=== PATIENT | female | born 1950 | race Caucasian/White ===

== ENCOUNTER 2020-05-01 09:40 | Day surgery (SDC) | payer MEDICARE, OTHER ==
[~2020-05-01 09:40] MED LIST: FENTANYL CITRATE INJ/PF 100 MCG/2 ML AMPUL ONE; KETOROLAC TROMETHAMINE 0.45% 4 DROP/0.4 ML DROPERETTE OD PRN; MIDAZOLAM 2 MG/2 ML INJ ONE
[2020-05-01] MEDS: TETRACAINE HCL 0.5% OPH SOLN 4 ML OD PRN ×3 (10:19→10:39)
[2020-05-01] MEDS: CYCLOPENTOLATE 0.2%/PHENYLEPHRINE 1% OPH SOLN 2 ML OD PRN ×3 (10:20→10:32)
[2020-05-01] MEDS: TROPICAMIDE 1% OPH SOLN 15 ML OD PRN ×3 (10:20→10:32)
[2020-05-01] MEDS: BESIFLOXACIN HCL 0.6% OPH SUSP 5 ML BOTTLE OD PRN ×4 (10:20→11:08)
[2020-05-01] MEDS ORDERED: MIDAZOLAM 2 MG/2 ML INJ ONE (10:21)
[2020-05-01] MEDS: LIDOCAINE 1%/PHENYLEPHRINE 1.5% 1 ML VIAL ONE ×2 (10:53)
[2020-05-01] MEDS: EPINEPHRINE INJ/PF 1 MG/1 ML AMPULE ONE ×2 (10:54)
[2020-05-01] MEDS: CHONDR SU A NA/HYALUR INTRAOC KIT (SURGICARE) ONE ×2 (10:54)
[2020-05-01] MEDS: PREDNISOLONE ACETATE 1% OPH SUSP 5 ML OD PRN ×2 (11:08)
[2020-05-01] MEDS: DORZOLAMIDE HCL 2%/TIMOLOL MALEAT 0.5% OPH SOLN 10 ML OD PRN ×2 (11:08)
--- NOTE | 2020-05-01 12:41 | Operative Report ---
Operative Report-[facility] Operative Report: DATE OF SURGERY: 05/01/2020 PREOPERATIVE DIAGNOSIS: Cataract, right eye POSTOPERATIVE DIAGNOSIS: Cataract, right eye OPERATION: Cataract extraction with insertion of an toric IOL of the right eye. Intraocular Lens Model: [22.0 diopter tfnt30 rotated to 144 degrees] Patient underwent surgery for difficulty seeing to drive at night SURGEON: Yunior Abel MD ANESTHESIA: Topical PROCEDURE: After obtaining appropriate consent, the patient's right eye was prepped and draped in a sterile fashion as well as the surgeon in the sterile manner and cataract surgery was started. First a paracentesis blade was used to make a side-port incision. Viscoelastic was used to inflate the anterior chamber. Next a 2.4 mm incision was made with a 2.4 mm blade, clear corneal temporarily. A continuous capsulorrhexis was made using a cystotome and Utrata forceps. Following this hydrodissection was carried out to make the ayanna fully loose and mobile and it was rotated. Following this, a divide and conquer technique was used to phacoemulsify the ayanna. The remaining cortex was removed with an irrigation/aspiration. Provisc was instilled into the capsular bag to inflate the bag. The intraocular lens was placed. The remaining viscoelastic material was removed with irrigation/aspiration. Following this, the incision was found to be watertight. Besivance and Cosopt was instilled into the eye and a protective shield was placed over the eye. The patient was reurned to the postoperative recovery in a stable condition.
== END 2020-05-01 11:40 | disposition home or self-care (01) ==
LOC: SC 09:40
PROVIDERS: ATTEND Internal Medicine
DX: H25.811 Combined forms of age-related cataract, right eye (principal); E03.9 Hypothyroidism, unspecified; E78.00 Pure hypercholesterolemia, unspecified; J45.909 Unspecified asthma, uncomplicated; I10 Essential (primary) hypertension; M06.9 Rheumatoid arthritis, unspecified; E66.9 Obesity, unspecified
CPT/HCPCS: 66984; V2788; J2250; J3490 ×2; A9270; J0171; 142; J3010

== ENCOUNTER 2020-05-22 07:51 | Day surgery (SDC) | payer MEDICARE, OTHER ==
[~2020-05-22 07:51] MED LIST changes: +CHONDR SU A NA/HYALUR INTRAOC KIT (SURGICARE) ONE; +DORZOLAMIDE HCL 2%/TIMOLOL MALEAT 0.5% OPH SOLN 10 ML OS PRN; +EPINEPHRINE INJ/PF 1 MG/1 ML AMPULE ONE; -FENTANYL CITRATE INJ/PF 100 MCG/2 ML AMPUL ONE; -KETOROLAC TROMETHAMINE 0.45% 4 DROP/0.4 ML DROPERETTE OD PRN; +LIDOCAINE 1%/PHENYLEPHRINE 1.5% 1 ML VIAL ONE; +LIDOCAINE 3.5% OPH GEL/PF 1 ML/TUBE OS PRN; -MIDAZOLAM 2 MG/2 ML INJ ONE; +PREDNISOLONE ACETATE 1% OPH SUSP 5 ML OS PRN
[2020-05-22] MEDS: TROPICAMIDE 1% OPH SOLN 15 ML OS PRN ×3 (08:36→09:06)
[2020-05-22] MEDS: CYCLOPENTOLATE 0.2%/PHENYLEPHRINE 1% OPH SOLN 2 ML OS PRN ×3 (08:36→09:06)
[2020-05-22] MEDS: TETRACAINE HCL 0.5% OPH SOLN 4 ML OS PRN ×2 (08:36→09:14)
[2020-05-22] MEDS: KETOROLAC TROMETHAMINE 0.45% 4 DROP/0.4 ML DROPERETTE OS PRN ×2 (08:36→09:06)
[2020-05-22] MEDS: BESIFLOXACIN HCL 0.6% OPH SUSP 5 ML BOTTLE OS PRN ×3 (08:36→09:38)
[2020-05-22] MEDS ORDERED: MIDAZOLAM 2 MG/2 ML INJ ONE (08:59)
--- NOTE | 2020-05-22 11:56 | Operative Report ---
Operative Report-[facility] Operative Report: DATE OF SURGERY: 05/22/2020 PREOPERATIVE DIAGNOSIS: Cataracts, left eye POSTOPERATIVE DIAGNOSIS: Cataract, left eye OPERATION: Cataract extraction with insertion of an panoptic's toric IOL of the left eye. Intraocular Lens Model: [22.5 TF NT 30 rotated to 31 degrees] went surgery for difficulty seeing small print SURGEON: Yunior Abel MD ANESTHESIA: Topical PROCEDURE: After obtaining appropriate consent, the patient's left eye was prepped and draped in a sterile fashion as well as the surgeon in the sterile manner and cataract surgery was started. First a paracentesis blade was used to make a side-port incision. Viscoelastic was used to inflate the anterior chamber. Next a 2.4 mm incision was made with a 2.4 mm blade, clear corneal temporarily. A continuous capsulorrhexis was made using a cystotome and Utrata forceps. Following this hydrodissection was carried out to make the lens fully loose and mobile and it was rotated 90 degrees. Following this, a divide and conquer technique was used to phacoemulsify the lens. The remaining cortex was removed with an irrigation/aspiration. Provisc was instilled into the capsular bag to inflate the bag.The intraocular lens was placed. The remaining viscoelastic material was removed with irrigation/aspiration. Following this, the incision was found to be watertight. Besivance and Cosopt was instilled into the eye and a protective shield was placed over the eye. The patient was returned to the postoperative recovery in a stable condition.
--- OUTSIDE RECORDS SUMMARY | 2020-05-23 14:59 | XMS REPORT ---
:1950 Author Organization [facility] Address [address] [place] [address] Care Team Providers Name Role Phone Jazmin, R Primary Care Physician Unavailable Tristan KINCAID Attending Clinician Unavailable Nancy Baez MD Attending Clinician Unavailable Viry Odell Attending Clinician Unavailable MD Yakov Obregon Attending Clinician Unavailable MD Yakov Obregon Attending Clinician Unavailable MD Amando Haider Admitting Clinician Unavailable Allergies, Adverse Reactions, Alerts Allergy Allergy Status Severity Reaction(s) Onset Inactive Treating C omments Name Type Date Date Clinician Thiazide Thiazide Active Photosensitivit Diuretics Diuretics y Augmentin Augmentin Active TABS TABS Bactrim Bactrim Active TABS TABS Medications Ordered Filled Start Stop Current Ordering Indication Dosage Frequency Signature Comments Components Medication Medication Date Date Medication? Clinician (SIG) Name Name amLODIPine 2019-07 Yes Nehemiah 1 QD amLODIPine Besylate 5 - Tristan KINCAID Besylate 5 MG Oral 00:00: MG Oral Tablet 00 Tablet TAKE 1 TABLET DAILY. Quantity: 90 Refills: 3 Nehemiah Hudson MD Start : 19-May-2020 Active Clindamycin 2019-0 No Ramana Cruz 1 Q0.3333D Clinda myci HCl - 300 6-24 Nestor KINCAID n HCl - MG Oral 00:00: 300 MG Capsule 00 Oral Capsule TAKE 1 CAPSULE 3 TIMES DAILY Quantity: 15 Refills: 0 Ramana Baez MD Start : 0Active Telmisartan 2019-0 No Ramana Cruz 1 Q0.5D Telmisart a 40 MG Oral - Nestor KINCAID n 40 MG Tablet 00:00: Oral 00 Tablet TAKE 1 TABLET TWICE DAILY Quantity: 180 Refills: 3 Ramana Baez MD Start : 0Active Triamcinolo 2019-0 Yes Ramana Cruz Triamcino l ne -19 Nestor KINCAID one Acetonide 00:00: Acetonide 0.1 % 00 0.1 % External External Cream Cream APPLY ONE TIME DAILY WHEN NEEDED Quantity: 1 Refills: 0 Ramana Baez MD Start : 0Active 80 GM Tube Telmisartan Yes Nehemiah 1 Q0.5D Telmisarta 40 MG Oral - Tristan KINCAID n 40 MG Tablet 00:00: Oral 00 Tablet TAKE 1 TABLET TWICE DAILY Quantity: 180 Refills: 3 Nehemiah Hudson MD Start : 0Active Furosemide 2019- Yes Ramana Cruz Furosemide 20 MG Oral - Nestor KINCAID 20 MG Oral Tablet 00:00: Tablet 00 TAKE 1 TABLET daily FOR FLUID/swel ling Quantity: 90 Refills: 2 Ramana Baez MD Start : 0Active Nystatin-Tr 2018-07 No Ramana Cruz Q0.5D Nystatin- T iamcinolone 2- Nestor KINCAID riamcinol o [id number] 00:00: ne UNIT/GM-% 00 [id number] External UNIT/GM-% Cream External Cream APPLY SPARINGLY TO AFFECTED AREA(S) TWICE DAILY Quantity: 1 Refills: 0 Ramana Baez MD Start : 9Active 60 GM Tube Rosuvastati 2018-07 Yes Ramana Cruz 1 QD Rosuvasta t n Calcium 0-03 Nestor KINCAID in Calcium 10 MG Oral 09:58: 10 MG Oral Tablet 12 Tablet TAKE 1 TABLET DAILY Quantity: 90 Refills: 4 Ramana Baez MD Start : 12-Apr-2019 Active Potassium No Ramana Cruz 1 Potassium Chloride ER 03-27 Nestor KINCAID Chloride 10 MEQ Oral 08:46: ER 10 MEQ Tablet 13 Oral Extended Tablet Release Extended Release TAKE 1 TABLET EVERY OTHER DAY Quantity: 90 Refills: 3 Ramana Baez MD Start : 9Active Allopurinol 2017-07 Yes Aleksandr Allopurino 100 MG Oral - Odell l 100 MG Tablet 00:00: D.O. Oral 00 Tablet TAKE 1 TABLET daily - total 400 mg per day Quantity: 90 Refills: 1 Aleksandr Odell D.O. Start : 8Active Allopurinol 2017-07 Yes Aleksandr QD Allopurino 300 MG Oral -12 Odell l 300 MG Tablet 00:00: D.O. Oral 00 Tablet TAKE 1 TABLET DAILY DIRECTED. Quantity: 90 Refills: 5 Cass MultaniAleksandr Start : 8Active Metoprolol 2017-07 No Ramana Cruz Metoprolol Succinate 0-17 Nestor KINCAID Succinate ER 25 MG 00:00: ER 25 MG Oral Tablet 00 Oral Extended Tablet Release 24 Extended Hour Release 24 Hour TAKE ONE TABLET BY MOUTH EVERY DAY *REPLACES BISOPROLOL Quantity: 90 Refills: 3 Ramana Baez MD Start : 8Active Metoprolol 2017-07 No Ramana Cruz Metoprolol Succinate 0-17 Nestor KINCAID Succinate ER 25 MG 00:00: ER 25 MG Oral Tablet 00 Oral Extended Tablet Release 24 Extended Hour Release 24 Hour TAKE ONE TABLET BY MOUTH EVERY DAY *REPLACES BISOPROLOL Quantity: 90 Refills: 3 Ramana Baez MD Start : 8Active Metoprolol 2017-07 No Ramana Cruz Metoprolol Succinate 0-17 Nestor KINCAID Succinate ER 25 MG 00:00: ER 25 MG Oral Tablet 00 Oral Extended Tablet Release 24 Extended Hour Release 24 Hour TAKE ONE TABLET BY MOUTH TWICE A DAY Quantity: 180 Refills: 3 Ramana Baez MD Start : 8Active Metoprolol 2017-07 Yes Nehemiah 1 QD Metoprolol Succinate 0-17 Tristan KINCAID Succinate ER 100 MG 00:00: ER 100 MG Oral Tablet 00 Oral Extended Tablet Release 24 Extended Hour Release 24 Hour TAKE 1 TABLET DAILY. Quantity: 90 Refills: 3 Nehemiah Hudson MD Start : 8Active Caltrate 2016-07 Yes 1 Q0.5D Caltrate 600+D 1-13 600+D 600-800 00:00: 600-800 MG-UNIT 00 MG-UNIT TABS TABS TAKE 1 TABLET TWICE DAILY with food Quantity: 60 Refills: 11 Start : 7Active Pantoprazol Yes Ramana Cruz Pantopraz o e Sodium 40 5-17 Nestor KINCAID le Sodium MG Oral 00:00: 40 MG Oral Tablet 00 Tablet Delayed Delayed Release Release TAKE 1 TABLET Every morning before breakfast for stomach acid Quantity: 90 Refills: 3 Ramana Baez MD Start : 7Active Klor-Con 10 No Ramana Cruz 1 QD Klor-Con 10 MEQ Oral 5-17 Nestor KINCAID 10 10 MEQ Tablet 00:00: Oral Extended 00 Tablet Release Extended Release TAKE 1 TABLET DAILY Quantity: 90 Refills: 3 Ramana Baez MD Start : 7Active Klor-Con 10 No Ramana Cruz Klor-Con 10 MEQ Oral 5-17 Nestor KINCAID 10 10 MEQ Tablet 00:00: Oral Extended 00 Tablet Release Extended Release TAKE 1 TABLET DIRECTED prn with fluid pill Quantity: 90 Refills: 6 Ramana Baez MD Start : 7Active Vitamin D Yes Ramana Cruz 1 QD Vitamin D 1000 UNIT - Nestor KINCAID 1000 UNIT CAPS 00:00: CAPS TAKE 00 1 CAPSULE DAILY Quantity: 90 Refills: 3 Ramana Baez MD Start : 0Active Synthroid 2008-07 Yes Ramana Cruz 1 QD Synthroid 125 MCG -16 Nestor KINCAID 125 MCG Oral Tablet 00:00: Oral 00 Tablet TAKE 1 TABLET DAILY Quantity: 90 Refills: 3 Ramana Baez MD Start : 9Active Hydrocortis 2006-07 No Ramana Cruz Hydrocort i one 10 MG 2-04 Nestor KINCAID sone 10 MG Oral Tablet 00:00: Oral 00 Tablet TAKE ONE AND ONE-HALF TABLETS EVERY MORNING WITH BREAKFAST AND TAKE ONE-HALF (1/2) TABLET WITH DINNER Quantity: 145 Refills: 3 Ramana Baez MD Start : 13-Jun-2007 Active Hydrocortis 2006-07 Yes Ramana Cruz Hydrocort i one 10 MG 2-04 Nestor KINCAID sone 10 MG Oral Tablet 00:00: Oral 00 Tablet TAKE ONE AND ONE-HALF TABLETS EVERY MORNING WITH BREAKFAST AND TAKE ONE-HALF (1/2) TABLET WITH DINNER Quantity: 145 Refills: 3 Ramana Baez MD Start : 13-Jun-2007 Active Problems Condition Condition Condition Status Onset Resolution Last Treatin g Comments Name Details Category Date Date Treatment Clinician Date Hip pain Hip pain Problem Active Chest pain Chest pain Problem Active History of History of Problem Resolve Tubular Tubular d adenoma of adenoma of colon colon Stress Stress Problem Active incontinenc incontinenc e in female e in female Postmenopau Postmenopau Problem Active celestina status celestina status Alopecia Alopecia Problem Active areata areata Palpitation Palpitation Problem Active 1st MTP 1st MTP Problem Active arthritis arthritis Pain in Pain in Problem Inactiv left knee left knee e Diverticulo Diverticulo Problem Active sis sis Foot pain, Foot pain, Problem Inactiv left left e 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 Cervical Cervical Problem Active radiculopat radiculopat hy hy Esophageal Esophageal Problem Active reflux reflux Low back Low back Problem Active pain pain Lumbar Lumbar Problem Active spinal spinal stenosis stenosis Lumbar disc Lumbar disc Problem Active disease disease Acute Acute Problem Active internal internal derangement derangement of right of right knee knee 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 Degenerativ Degenerativ Problem Active e arthritis e arthritis of knee of knee Spondylolis Spondylolis Problem Active thesis, thesis, grade 1 grade 1 Osteopenia Osteopenia Problem Active of multiple of multiple sites sites Cough Cough Problem Inactiv e Left ankle Left ankle Problem Inactiv pain pain e Secondary Secondary Problem Active hypothyroid hypothyroid ism ism Arthritis, Arthritis, Problem Active degenerativ degenerativ e e Immunizatio Immunizatio Problem Active n due n due Abnormal Abnormal Problem Active finding on finding on urinalysis urinalysis UTI UTI Problem Active (urinary (urinary tract tract infection) infection) Hypomagnese Hypomagnese Problem Active reanna reanna Conjunctivi Conjunctivi Problem Active tis tis Hyperlipide Hyperlipide Problem Active reanna reanna HTN HTN Problem Active (hypertensi (hypertensi on) on) Hypokalemia Hypokalemia Problem Active Encounter Encounter Problem Active for for long-term long-term (current) (current) use of use of medications medications Hypopituita Hypopituita Problem Active rism rism Dense Dense Problem Active breast breast tissue tissue Rash Rash Problem Inactiv e Ankylosing Ankylosing Problem Active spondylitis spondylitis Edema Edema Problem Active Chronic Chronic Problem Active gout gout Samuel Samuel Problem Active syndrome syndrome Microscopic Microscopic Problem Active hematuria hematuria Lumbar Lumbar Problem Active radiculopat radiculopat hy hy HLA-B27 HLA-B27 Problem Active positive positive Hyperuricem Hyperuricem Problem Active ia ia Tenosynovit Tenosynovit Problem Active is of is of finger finger Procedures Procedure Date / Time Performed Performing Clinician Devic e NM- Stress Cardiolite 2020-05-19 00:00:00 EKG 2020-05-16 00:00:00 Urinalysis 2020-04-11 00:00:00 Sed Rate 2020-04-11 00:00:00 CRP 2020-04-11 00:00:00 CMP(Complete Metabolic Panel) 2020-04-11 00:00:00 CBC 2020-04-11 00:00:00 Uric Acid 2020-04-11 00:00:00 CBC 2020-04-01 00:00:00 CMP(Complete Metabolic Panel) 2020-04-01 00:00:00 Lipid Panel 2020-04-01 00:00:00 Uric Acid 2020-04-01 00:00:00 Free T4 2020-04-01 00:00:00 History of Total Abdominal Hysterectomy With Removal Of Both Ovaries History of Oophorectomy Unilateral Laparoscopic History of Oophorectomy - Bilateral (Removal Of Both Ovaries) History of Appendectomy Results Test Description Test Time Test Comments Text Results Atomic Results Result Comments CBC 2020-04-11 15:08:00 Test Item Value Reference Range Comments White Blood Cell (test code = White Blood Cell) 11.5 K/uL 3.5-11.1 Red Blood Cell (test code = Red Blood Cell) 4.36 {M/uL} 3.69 -4.87 Hemoglobin (test code = Hemoglobin) 12.8 g/dL 11.4-14.4 Hematocrit (test code = Hematocrit) 39 % 33-41 Mean Corpuscular Volume (test code = Mean Corpuscular Volume) 89 .4 fL 79.0-95.0 Mean Corpuscular Hemoglobin (test code = Mean Corpuscular 29.4 p g/mL 27.0-33.0 Hemoglobin) Mean Corpuscular Hemoglobin Concentration (test code = Mean 32.8 g/dL 33.5-35.5 Corpuscular Hemoglobin Concentration) Red Cell Distribution Width (test code = Red Cell 13.4 % 12.0-15.0 Distribution Width) Platelet (test code = Platelet) 246 K/uL 130-353 Mean Platelet Volume (test code = Mean Platelet Volume) 10.1 fL 7.5-10.7 Neutrophil Count, absolute (test code = Neutrophil Count, 9.1 K/ uL 1.9-7.2 absolute) Neutrophil Count Percentage (test code = Neutrophil Count 79.3 % 43.0-72.0 Percentage) Lymphocyte Count, absolute (test code = Lymphocyte Count, 1.6 K/ uL 1.1-2.7 absolute) Lymphocyte Count Percentage (test code = Lymphocyte Count 14.2 % 17.0-44.0 Percentage) Monocyte Count, absolute (test code = Monocyte Count, 0.5 K/uL 0.3-0.8 absolute) Monocyte Count Percentage (test code = Monocyte Count 4.4 % 4.5-12.4 Percentage) Eosinophil Count, absolute (test code = Eosinophil Count, 0.1 K/ uL 0.0-0.5 absolute) Eosinophil Count Percentage (test code = Eosinophil Count 1.0 % 0.7-7.8 Percentage) Basophil Count, absolute (test code = Basophil Count, 0.1 K/uL 0.0-0.1 absolute) Basophil Count Percentage (test code = Basophil Count 0.6 % 0.2-1.1 Percentage) Nucleated Red Blood Cell, absolute (test code = Nucleated Re d 0.00 K/uL 0.00-0.00 Blood Cell, absolute) Nucleated Red Blood Cell, percentage (test code = Nucleated 0.00 % 0.00-0.00 Red Blood Cell, percentage) Sed [id number] 15:08:00 Test Item Value Reference Range Comments Erythrocyte Sedimentation Rate (test code = 5 {mm/hr} 0-30 Erythrocyte Sedimentation Rate) [id number] 15:08:00 Test Item Value Reference Range Comments Urine Color (test code = Urine Color) LT. YELLOW Yellow Urine Clarity (test code = Urine Clarity) CLEAR Clear Urine Glucose (test code = Urine Glucose) NEGATIVE Negati ve Urine Ketones (test code = Urine Ketones) NEGATIVE Negati ve Urine Bilirubin (test code = Urine NEGATIVE Negative Bilirubin) Urine Specific [place] (test code = Urine 1.006 1.010- 1.030 Refractometer Specific [place]) Urine Blood (test code = Urine Blood) SMALL Negative Urine pH (test code = Urine pH) 6.0 5.0-8.0 Urine Protein (test code = Urine Protein) NEGATIVE Negati ve Urine Urobilinogen (test code = Urine 0.2 Eu/dl 0.2 Urobilinogen) Urine Nitrites (test code = Urine Nitrites) NEGATIVE Nega tive Urine Leukocytes (test code = Urine NEGATIVE Negative RBC=0-2WBC=0-2 Leukocytes) [id number] 15:07:00 Test Item Value Reference Range Comments C-Reactive Protein (test code = C-Reactive Protein) 20 mg/L <10 CMP(Complete Metabolic Panel)2020-04-11 15:07:00 Test Item Value Reference Range Comments Glucose (test code = Glucose) 116 mg/dL 74-106 Sodium (test code = Sodium) 140 mmol/L 135-145 Potassium (test code = Potassium) 4.4 mmol/L 3.5-5.3 Chloride (test code = Chloride) 100 mmol/L 98-107 CO2 (test code = CO2) 30 mmol/L 22-30 Creatinine, serum (test code = Creatinine, 1.10 mg/dL 0.10- 1.04 serum) Glomerular Filtration Rate (test code = 52 mL/min/1.7 >60 Glomerular Filtration Rate) Glomerular Filtration Rate AA (test code = >60 >60 Glomerular Filtration Rate AA) Blood Urea Nitrogen (test code = Blood Urea 23 mg/dL 7-17 Nitrogen) Calcium (test code = Calcium) 10.0 mg/dL 8.4-10.5 Phosphorus (test code = Phosphorus) 4.5 mg/dL 2.5-4.5 Total Protein (test code = Total Protein) 7.3 g/dL 6.3-8. 2 Albumin (test code = 80386-8) 4.6 g/dL 3.5-5.0 Total Bilirubin (test code = Total Bilirubin) 0.7 mg/dL 0. 2-1.3 Bilirubin, unconj (test code = Bilirubin, 0.6 mg/dL 0.0-1. 1 unconj) Bilirubin, Direct (test code = Bilirubin, 0.1 mg/dL 0.0-0. 4 Direct) Alkaline Phosphatase (test code = Alkaline 126 U/L 20-15 0 Phosphatase) Alanine Transaminase (test code = Alanine 18 U/L 0-35 Transaminase) Aspartate Aminotransferase (test code = 34 U/L 3-36 Aspartate Aminotransferase) Uric [id number] 15:07:00 Test Item Value Reference Range Comments Uric Acid (test code = Uric Acid) 5.3 mg/dL 2.5-6.2 [id number] 10:23:00 Test Item Value Reference Range Comments White Blood Cell (test code = White Blood Cell) 9.3 K/uL 3.5-11.1 Red Blood Cell (test code = Red Blood Cell) 4.38 {M/uL} 3.69 -4.87 Hemoglobin (test code = Hemoglobin) 13.0 g/dL 11.4-14.4 Hematocrit (test code = Hematocrit) 39 % 33-41 Mean Corpuscular Volume (test code = Mean 88.8 fL 79.0-9 5.0 Corpuscular Volume) Mean Corpuscular Hemoglobin (test code = Mean 29.7 pg/mL 27 .0-33.0 Corpuscular Hemoglobin) Mean Corpuscular Hemoglobin Concentration (test 33.4 g/dL 33.5-35.5 code = Mean Corpuscular Hemoglobin Concentration) Red Cell Distribution Width (test code = Red 13.1 % 12. 0-15.0 Cell Distribution Width) Platelet (test code = Platelet) 213 K/uL 130-353 Mean Platelet Volume (test code = Mean Platelet 9.6 fL 7.5-10.7 Volume) Neutrophil Count, absolute (test code = 5.9 K/uL 1.9-7.2 Neutrophil Count, absolute) Neutrophil Count Percentage (test code = 63.6 % 43.0-72 .0 Neutrophil Count Percentage) Lymphocyte Count, absolute (test code = 2.1 K/uL 1.1-2.7 Lymphocyte Count, absolute) Lymphocyte Count Percentage (test code = 22.9 % 17.0-44 .0 Lymphocyte Count Percentage) Monocyte Count, absolute (test code = Monocyte 0.7 K/uL 0 .3-0.8 Count, absolute) Monocyte Count Percentage (test code = Monocyte 7.4 % 4.5-12.4 Count Percentage) Eosinophil Count, absolute (test code = 0.5 K/uL 0.0-0.5 Eosinophil Count, absolute) Eosinophil Count Percentage (test code = 5.2 % 0.7-7.8 Eosinophil Count Percentage) Basophil Count, absolute (test code = Basophil 0.1 K/uL 0 .0-0.1 Count, absolute) Basophil Count Percentage (test code = Basophil 0.6 % 0.2-1.1 Count Percentage) CMP(Complete Metabolic Panel)2020-04-01 10:22:00 Test Item Value Reference Range Comments Glucose (test code = Glucose) 95 mg/dL 74-106 Sodium (test code = Sodium) 140 mmol/L 135-145 Potassium (test code = Potassium) 3.9 mmol/L 3.5-5.3 Chloride (test code = Chloride) 101 mmol/L 98-107 CO2 (test code = CO2) 28 mmol/L 22-30 Creatinine, serum (test code = Creatinine, serum) 0.90 mg/dL 0.10-1.04 Glomerular Filtration Rate (test code = >60 >60 Glomerular Filtration Rate) Glomerular Filtration Rate AA (test code = >60 >60 Glomerular Filtration Rate AA) Blood Urea Nitrogen (test code = Blood Urea 20 mg/dL 7-17 Nitrogen) Calcium (test code = Calcium) 9.7 mg/dL 8.4-10.5 Phosphorus (test code = Phosphorus) 3.7 mg/dL 2.5-4.5 Total Protein (test code = Total Protein) 6.6 g/dL 6.3-8. 2 Albumin (test code = 71003-0) 4.2 g/dL 3.5-5.0 Total Bilirubin (test code = Total Bilirubin) 0.6 mg/dL 0. 2-1.3 Bilirubin, unconj (test code = Bilirubin, unconj) 0.5 mg/dL 0.0-1.1 Bilirubin, Direct (test code = Bilirubin, Direct) 0.1 mg/dL 0.0-0.4 Alkaline Phosphatase (test code = Alkaline 119 U/L 20-15 0 Phosphatase) Alanine Transaminase (test code = Alanine 21 U/L 0-35 Transaminase) Aspartate Aminotransferase (test code = Aspartate 28 U/L 3-36 Aminotransferase) Lipid [id number] 10:22:00 Test Item Value Reference Range Comments Chol/HDL Ratio (test code = 4.5 {ratio} 0.0-6.0 2088-07) High Density Lipoprotein 55 mg/dL 40-110 Cholesterol (test code = High Density Lipoprotein Cholesterol) Low Density Lipoprotein, 103 mg/dL 1-130 May be inaccurate due to calculated (test code = Low Trig lycerides >400 mg/dL Density Lipoprotein, calculated) Uric [id number] 10:22:00 Test Item Value Reference Range Comments Uric Acid (test code = Uric Acid) 7.2 mg/dL 2.5-6.2 Free [id number] 10:22:00 Test Item Value Reference Range Comments Free T4 (test code = Free T4) 1.11 ng/dL 0.78-2.19 Direct [id number] 10:22:00 Test Item Value Reference Range Comments Low Density Lipoprotein; Above High Threshold 131 mg/dL 1- 130 (test code = 2089-1) XR-Hip with Pelvis 2 Views (Unilateral) [id number] 10:18:00An image is avaliable in i[employer], click link to view image Assessments Condition Name Status Diagnosis Date Treating Clinici an Ankylosing spondylitis of unspecified sites Active 0 in spine Encounter for long-term (current) use of Active medications Rash Active Hypopituitarism Active Degenerative arthritis of knee Active Dense breast tissue Active Chronic gout Active Ankylosing spondylitis Active Lumbar radiculopathy Active Samuel syndrome Active Edema Active Hyperuricemia Active Microscopic hematuria Active HLA-B27 positive Active Tenosynovitis of finger Active Chronic gout Active Edema Active Hypertension Active Encounter for long-term (current) use of Active medications Hyperlipidemia Active Hypopituitarism Active Hip pain Active Chronic gout Active Osteopenia of multiple sites Active Edema Active Ankylosing spondylitis Active Chronic gout Active Immunization due Active HTN (hypertension) Active Chest pain Active Ankylosing spondylitis Active HTN (hypertension) Active Spondylolisthesis, grade 1 Active Lumbar spinal stenosis Active Lumbar disc disease Active HLA-B27 positive Active Chronic gout Active Hypertension Active Encounter for long-term (current) use of Active medications Secondary hypothyroidism Active Hypopituitarism Active Dense breast tissue Active Right ankle pain, unspecified chronicity Active Ankylosing spondylitis Active Adult osteomalacia Active Acute internal derangement of right knee Active Hyperuricemia Active Lumbar disc disease Active Osteopenia Active HLA-B27 positive Active Chronic gout Active Arthritis of knee, degenerative Active Arthritis, degenerative Active Ankylosing spondylitis Active Samuel syndrome Active HTN (hypertension) Active Spondylolisthesis, grade 1 Active Osteopenia Active HLA-B27 positive Active Chronic gout Active Cough Active Acute bronchitis Active Hypertension Active Hypopituitarism Active Left ankle pain Active Osteopenia of multiple sites Active Hypertension Active Hyperlipidemia Active Hyperuricemia Active Degenerative arthritis of knee Active Ankylosing spondylitis Active HLA-B27 positive Active Chronic gout Active HTN (hypertension) Active Immunization due Active Secondary hypothyroidism Active Hypopituitarism Active Arthritis, degenerative Active Abnormal finding on urinalysis Active HTN (hypertension) Active Dysuria Active Sepsis Active UTI (urinary tract infection) Active Hypokalemia Active Hypomagnesemia Active Hypertension Active Edema Active Conjunctivitis Active Ankylosing spondylitis Active Hyperlipidemia Active Hyperuricemia Active Degenerative arthritis of knee Active HLA-B27 positive Active Chronic gout Active Hypertension Active Hypokalemia Active HTN (hypertension) Active Hypertension Active Lumbar radiculopathy Active Immunization due Active Low back pain Active Secondary hypothyroidism Active Leg ulcer Active Hyperlipidemia Active Microscopic hematuria Active Lumbar disc disease Active Esophageal reflux Active HLA-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 [id number] 08:30:00 09:15:06 Nehemiah Hudson MD 2020-04-22 2020-04-22 Appointment; [facility] [id number] 12:20:00 12:20:00 Tamir Schmidt Clinical 2020-04-11 2020-04-11 Appointment; [facility] [id number] 14:30:00 14:30:00 Aleksandr Odell D.O. 2020-04-01 2020-04-01 Appointment; [facility] [id number] 10:30:00 10:30:00 Tamir Schmidt X-ray 2020-04-01 2020-04-01 Appointment; Nestor [facility] [id number] 09:45:00 09:45:00 Ramana Baez MD 2020-01-03 2020-01-03 Appointment; [facility] [id number] 14:15:00 14:15:00 Aleksandr Odell D.O. 2020-01-02 2020-01-02 [facility] [id number] 11:30:00 11:30:00 Ramana Baez MD 2019-12-17 2019-12-17 Appointment; [facility] [id number] 09:20:00 09:20:00 Mammogram, [place] 2019-11-27 2019-11-27 [facility] [id number] 10:45:00 10:45:00 Ramana Baez MD 2019-09-03 2019-09-03 Viry Odell [facility] [id number] 10:40:02 23:59:59 Aleksandr 2019-09-03 2019-09-03 Appointment; [facility] [id number] 09:45:00 09:45:00 Aleksandr Odell D.O. 2019-09-03 2019-09-03 Appointment; [facility] [id number] 09:20:00 09:20:00 Bone Density, PV 2019-08-21 2019-08-21 [id number] 11:45:00 11:45:00 Ramana Baez MD 2019-07-27 2019-07-27 Appointment; Nestor [facility] [id number] 10:30:00 10:30:00 Ramana Baez MD 2019-06-14 2019-06-14 Appointment; [facility] [id number] 10:30:00 10:30:00 Leah Wu PA-C 2019-06-06 2019-06-09 I 1 Satya Obregon [facility] [id number] 01:34:04 11:54:00 Satya Obregon 2019-06-04 2019-06-04 Appointment; [facility] [id number] 10:05:00 10:05:00 Tamir Schmidt, X-ray 2019-05-17 2019-05-17 Appointment; [facility] [id number] 08:30:00 08:30:00 Dwayne Su MD 2019-04-12 2019-04-12 Appointment; eNstor [facility] [id number] 13:30:00 13:30:00 Ramana Baez MD 2019-02-28 2019-02-28 Appointment; [facility] [id number] 14:15:00 14:15:00 Aleksandr Odell D.O. 2018-12-13 2018-12-13 Appointment; [facility] [id number] 08:20:00 08:20:00 Mammogram, [place] 2018-12-05 2018-12-05 Appointment; [facility] [id number] 12:35:00 12:35:00 [place], X-ray 2018-12-05 2018-12-05 Appointment; [facility] [id number] 11:30:00 11:30:00 Ramana Baez MD 2018-11-27 2018-11-27 [facility] [id number] 09:20:00 09:20:00 Ramana Baez MD 2018-11-20 2018-11-20 Appointment; [facility] [id number] 08:30:00 08:30:00 Aleksandr Odell D.O. 2018-09-28 2018-09-28 Appointment; [facility] [id number] 11:30:00 11:30:00 Aleksandr Odell D.O. 2018-09-08 2018-09-08 Appointment; [facility] [id number] 10:55:00 10:55:00 [place], X-ray 2018-09-08 2018-09-08 Appointment; [facility] [id number] 10:15:00 10:15:00 Ramana Baez MD 2018-08-09 2018-08-09 Appointment; [facility] [id number] 11:15:00 11:15:00 Ramana Baez MD 2018-05-22 2018-05-22 Appointment; [facility] [id number] 10:45:00 10:45:00 Aleksandr Odell D.O. 2018-05-19 2018-05-19 Appointment; [facility] [id number] 13:45:00 13:45:00 Dwayne Su MD 2018-05-09 2018-05-09 Appointment; [facility] [id number] 09:30:00 09:30:00 Ramana Baez MD 2018-03-01 2018-03-01 Appointment; [facility] [id number] 10:15:00 10:15:00 Aleksandr Odell D.O. Family History Family Member Diagnosis Comments Start Date Stop Date Unspecified Family history of Ovarian Cancer Family History Sister Family history of ovarian cancer Immunizations Ordered Immunization Filled Immunization Date Status Commen ts Refusal Reason Name Name Fluzone High-Dose 2020-04-22 Completed Quadrivalent 0.7 ML 16:16:00 Intramuscular Suspension Prefilled Syringe Fluarix Quadrivalent 2019-04-12 Completed 0.5 ML Intramuscular 16:22:00 Suspension Prefilled Syringe Fluarix Quadrivalent 2018-05-09 Completed 0.5 ML Intramuscular 14:16:00 Suspension Prefilled Syringe Fluarix Quadrivalent 2017-05-23 Completed 0.5 ML Intramuscular 00:00:00 Suspension Prefilled Syringe Pneumovax Vaccine 2017-03-01 Completed 09:44:00 Prevnar Vaccine 2016-11-24 Completed 10:59:00 Influenza 2016-05-06 Completed 11:29:00 Influenza 2015-03-26 Completed 16:14:00 Zostavax [id number] 2014-06-01 Completed UNT/0.65ML 00:00:00 Subcutaneous Solution Reconstituted Influenza 2014-04-18 Completed 17:14:00 Tdap (Boostrix) 2014-04-18 Completed 17:14:00 Influenza 2011-04-12 Completed 00:00:00 Influenza 2007-04-20 Completed 00:00:00 Influenza 2006-04-20 Completed 00:00:00 Payers Payer Name Policy Type Policy Number Effective Date Expiration D ate Social History Smoking Status Start Date Stop Date Never smoked tobacco (finding) Vital Signs Vital Name Observation Time Observation Value Comments Systolic blood pressure 2020-05-19 08:12:00 138 mm[Hg] Diastolic blood pressure 2020-05-19 08:12:00 70 mm[Hg] Body height 2020-05-19 08:12:00 59 [in_us] Weight 2020-05-19 08:12:00 158 [lb_av] Body mass index (BMI) 2020-05-19 08:12:00 31.91 kg/m2 [Ratio] Body temperature 2020-05-19 08:12:00 97.7 [degF] Heart Rate 2020-05-19 08:12:00 67 /min Systolic blood pressure 2020-04-11 14:31:00 134 mm[Hg] Diastolic blood pressure 2020-04-11 14:31:00 82 mm[Hg] Body height 2020-04-11 14:31:00 59 [in_us] Weight 2020-04-11 14:31:00 159.375 [lb_av] Body mass index (BMI) 2020-04-11 14:31:00 32.19 kg/m2 [Ratio] Body temperature 2020-04-11 14:31:00 96.2 [degF] Heart Rate 2020-04-11 14:31:00 72 /min Respiratory rate 2020-04-11 14:31:00 16 /min O2 SAT 2020-04-11 14:31:00 99 % Source: RA Systolic blood pressure 2020-04-01 09:48:00 164 mm[Hg] Loca tion: LUE; Position: Sittin g Diastolic blood pressure 2020-04-01 09:48:00 80 mm[Hg] Loc ation: LUE; Position: Sittin g Body temperature 2020-04-01 09:48:00 96.8 [degF] Weight 2020-04-01 09:48:00 158 [lb_av] Body mass index (BMI) 2020-04-01 09:48:00 31.91 kg/m2 [Ratio] Heart Rate 2020-04-01 09:48:00 78 /min Systolic blood pressure 2020-01-03 14:27:00 132 mm[Hg] Diastolic blood pressure 2020-01-03 14:27:00 82 mm[Hg] Body height 2020-01-03 14:27:00 59 [in_us] Weight 2020-01-03 14:27:00 161.25 [lb_av] Body mass index (BMI) 2020-01-03 14:27:00 32.57 kg/m2 [Ratio] Body temperature 2020-01-03 14:27:00 97.1 [degF] Heart Rate 2020-01-03 14:27:00 68 /min Respiratory rate 2020-01-03 14:27:00 16 /min O2 SAT 2020-01-03 14:27:00 99 % Source: RA Systolic blood pressure 2020-01-02 11:17:00 138 mm[Hg] Loca tion: RUE; Position: Sittin g Diastolic blood pressure 2020-01-02 11:17:00 90 mm[Hg] Loc ation: RUE; Position: Sittin g Body temperature 2020-01-02 11:17:00 97.8 [degF] Heart Rate 2020-01-02 11:17:00 88 /min O2 SAT 2020-01-02 11:17:00 97 % Hospital Discharge Instructions NameDatesDetailsInstructions not documentedNameDatesDetailsInstructions not documentedNameDatesDetailsInstructions not documented NameDatesDetailsInstructions not documented
== END 2020-05-22 10:15 | disposition home or self-care (01) ==
LOC: SC 07:51
PROVIDERS: ATTEND Internal Medicine
DX: H25.812 Combined forms of age-related cataract, left eye (principal); Z96.1 Presence of intraocular lens; I10 Essential (primary) hypertension; E03.9 Hypothyroidism, unspecified; E78.00 Pure hypercholesterolemia, unspecified; K21.9 Gastro-esophageal reflux disease without esophagitis; E66.9 Obesity, unspecified; M06.9 Rheumatoid arthritis, unspecified; Z79.899 Other long term (current) drug therapy
CPT/HCPCS: 66984; V2788; J2250; J3490 ×2; A9270; J0171